=== PATIENT | female | born 2000 | race Caucasian/White ===

== ENCOUNTER 2024-12-22 14:03 | Outpatient (AMB) | payer MEDICAID, SELFPAY ==
[2024-12-22 14:24] VITALS: BP 112/76; PULSE 78; RESP 18; TEMP 36.5; O2SAT 98; BMI 42.7
--- NOTE | 2024-12-22 14:24 | PD.GSCLVISIT ---
Vital Signs - [facility] 12/22/24 14:24 Height 1.73 m Height Method Stated Weight 127.459 kg Weight Measurement Method Standing Scale BMI 42.7 BP 112/76 Blood Pressure Source Automatic Cuff Blood Pressure Location Right Upper Arm Position Sitting Respiration 18 Pulse 78 Pulse Source Monitor Temp 97.7 F Temp Source Temporal Artery Scan Pulse Oximetry (%) 98 Oxygen Delivery Method Room Air Med/Allergies Allergies & Medications Allergies ALL CILLINS ANTIBODICS Allergy (Uncoded 12/22/24 14:26) HIVES Medication Reconciliation elagolix 150 mg tablet (Orilissa) 150 mg PO QDAY 12/22/24 [History Confirmed 12/22/24] levothyroxine 25 mcg tablet (Synthroid) 25 mcg PO QDAY 12/22/24 [History Confirmed 12/22/24] metformin 500 mg tablet 500 mg PO QDAY 12/22/24 [History Confirmed 12/22/24] tirzepatide (weight loss) 2.5 mg/0.5 mL subcutaneous pen injector (Zepbound) 2.5 mg subcut QWEEK 12/22/24 [History Confirmed 12/22/24] MA Intake Visit Data Collection New Patient or Established: New Patient (never been to [facility]) Reason for Visit:: GALLSTONES Pain Present Currently: No Pain Scale Used: GunterNatalie/Numerical Central Lab Technician Required: No PCP or OBGYN visit in last 3 months: Yes Hx Now: No Do You Feel Safe at Home: Yes Authorities Contacted: N/A Smoking Status Smoking Status: Never smoker Are you interested in quitting?: No Would you like additional Smoking Cessation Counseling?: No Immunization / Flu Flu Vaccine in the Last 12 Months: No Flu Vaccine Exclusion Criteria: No Exclusion Criteria Past Medical History Past Medical History GASTROINTESTINAL: Positive Gastrointestinal Disorders (cholelithiasis) REPRODUCTIVE: Positive Endometriosis and Hx Polycystic Ovarian Syndrome ENDOCRINE: Positive Diabetes Mellitus Type 2 (prediabetes) and Hypothyroidism Family History OTHER FAMILY HX: [place]'s disease in mother Colorectal CA in grandmother Social History SOCIAL: Denies tobacco use, alcohol use, and illicit drug use. LMP end of November. Irregular menstrual cycles. SMOKING STATUS: Smoking status: Never smoker HPI HPI Narrative 24 year old female with pmh of hypothyroidism, cholelithiasis, endometriosis, PCOS, and prediabetes presents with RUQ pain for the past 4 months. Patient states that she has been experiencing burning epigastric pain and RUQ pain that radiates to the back and LUQ. She had been experiencing this pain intermittently for a while, but it became severe and constant which prompted her to go to the ER. She describes the pain as a 10/10 when it occurs. She denies taking any pain medications. She was also experiencing nausea and vomiting during that time. She states that the last time she experienced emesis was a month and a half ago. She is still experiencing intermittent nausea that worsens with spicy or acidic food. Her epigastric pain also worsens with these foods and with strenuous exercise. She also admits to experiencing diarrhea that causes her to produce bowel movements 8 to 10 times per day. She states that her stool is ocassionally watery, but mostly an applesauce consistency. She states that they may be brown or green in color, but on occasion they will be dark red or black and tarry. She also states that she wakes up in a cold sweat every night, but denies fevers. She recently began taking Zepbound and metformin in May, but states that she was experiencing the diarrhea for a long time prior to beginning these medications. She also recently switched from omeprazole to pantoprazole to control the heartburn, which she states has not been improving. ROS Constitutional Constitutional: Denies chills, Denies fever(s), Denies increased appetite, Reports night sweats and Denies weight loss Gastrointestinal Gastrointestinal: Reports abdominal pain, Reports diarrhea, Reports dyspepsia, Reports melena (occasionally ), Reports nausea and Denies vomiting Objective/Exam General General Appearance: alert, cooperative and well groomed Resp Respiratory exam: Absent respiratory distress or accessory muscle use Abdominal Abdominal exam: Present soft and tenderness (RUQ and epigastric area ); Absent distention, guarding, rebound, organomegaly (no hepatomegaly) or Vidal's sign Assessment & Plan Diagnosis / Problem List (1) Abdominal pain: Status: Acute Assessment & Plan: 24F presenting with upper abdominal discomfort, diarrhea and occasional red/tarry stools. I explained that her symptoms may be biliary in nature but that would not explain the blood in her stools. Pt did see a GI and is planned for EGD, I asked her to follow up after that is done. All questions were answered and pt expressed understanding Office Procedures GNS Level of Care Nursing/Assessment Patient Status: Initial/New Patient Nursing Assessment/Reassesment: Medication Reconciliation, Update PMH in EMR and Vital Signs Coordination of Care: Complex Care and Chronic Disease 1-5, Education Complex Pt/Fam, Consent,records obtained, informed consent, 1 Ins Authorization, Results/Orders obtained and Staff clarify orders New Patient Charge New Patient Point Assignment: 1109 New Patient Point Charge: JAVA J2EE APPLICATION DEVELOPER Level 3 ([id number]) Patient Portal Questionaires Social History Tobacco History Smoking Status: Never smoker Domestic Abuse History Do You Feel Safe at Home: Yes Review of Systems Report any current symptoms Only answer those that you have currently: General Complaints chills: No fever(s): No increased appetite: No night sweats: Yes weight loss: No Digestive System abdominal pain: Yes diarrhea: Yes heartburn: Yes black, tarry stools: Yes (occasionally ) nausea: Yes vomiting: No Past Medical History Past Medical History Have you ever been diagnosed with any of the following: Reproductive Problems Endometriosis: Yes Polycystic Ovarian Syndrome: Yes Endocrine Problems Diabetes Mellitus Type 2: Yes (prediabetes) Hypothyroidism: Yes
== END 2024-12-22 15:09 | disposition home or self-care (01) ==
PROVIDERS: PCP Family Medicine; Referring Provider Family Medicine; Supervising Provider Surgery; Visit Provider Surgery
DX: R10.10 Upper abdominal pain, unspecified (principal); R19.7 Diarrhea, unspecified
CPT/HCPCS: 99203; G0463